=== PATIENT | male | born 1985 | race Caucasian/White ===

== ENCOUNTER 2024-08-08 14:05 | Emergency (ER) | payer BC ==
[~2024-08-08] VITALS: Ht 160 cm; Wt 65.0 kg
[2024-08-08 14:14] VITALS: BP 135/75; PULSE 64; TEMP 98.4; O2SAT 100
[2024-08-08 15:46] LABS: BASOPHILS % 0.2 % (0.0-2.0); EOSINOPHILS % 0.3 % (0.0-5.0); HEMOGLOBIN. 14.7 g/dL (14.0-18.0); LYMPHOCYTES % 9.5 % (20.0-50.0); MEAN CORPUSCULAR HEMOGLOBIN 29.4 pg (28.0-32.0); MEAN CORPUSCULAR VOLUME 86.2 fL (80.0-94.0); MEAN PLATELET VOLUME 9.1 fl (7.4-10.4); MONOCYTES % 2.6 % (2.0-8.0); NEUTROPHILS % 87.4 % (40.0-76.0); PLATELET 254 x1000/uL (130-400); RED BLOOD CELL COUNT 4.99 mill/uL (4.7-6.1); RED CELL DISTRIBUTION WIDTH 13.4 % (11.6-14.6); WHITE BLOOD COUNT 16.8 x1000/uL (4.5-11.0)
[2024-08-08 15:51] LABS: CHLORIDE 106 mEq/L (98-107); POTASSIUM 4.1 mEq/L (3.5-5.1); SODIUM 140 mEq/L (136-145)
[2024-08-08 15:52] LABS: CARBON DIOXIDE 28 mEq/L (21-32)
[2024-08-08 15:53] LABS: CALCIUM 9.7 mg/dL (8.7-10.4)
[2024-08-08 15:57] LABS: GLUCOSE 136 mg/dL (70-105)
[2024-08-08 15:58] LABS: UREA NITROGEN BLOOD 16 mg/dL (9-23)
[2024-08-08 16:03] LABS: ALANINE AMINOTRANSFERASE 59 IU/L (10-49); ALBUMIN 4.9 g/dL (3.2-4.8); ASPARTATE AMINOTRANSFERASE 36 IU/L (<34); BILIRUBIN DIRECT 0.1 mg/dL (<=3.0); BILIRUBIN TOTAL 0.5 mg/dL (0.1-1.0); PROTEIN TOTAL 7.7 g/dL (6.0-8.3)
[2024-08-08 17:57] LABS: CLARITY URINE CLEAR (CLEAR); COLOR URINE YELLOW (YELLOW); GLUCOSE URINE NEGATIVE (NEGATIVE); KETONES URINE 2+ (NEGATIVE); LEUKOCYTE ESTERASE URINE NEGATIVE (NEGATIVE); NITRITE URINE NEGATIVE (NEGATIVE); OCCULT BLOOD URINE NEGATIVE (NEGATIVE); PH URINE 6.5 (4.5-8.0); PROTEIN URINE TRACE (NEGATIVE)
[2024-08-08] MEDS: ONDANSETRON 4MG ODT PO ONE (18:00)
[2024-08-08] MEDS: MAGNESIUM/ALUMINUM HYDROXIDE/SIMETHICONE 30ML UDC PO ONE (18:00)
[2024-08-08] MEDS: IBUPROFEN 400MG TABLET PO ONE (18:00)
[2024-08-08 18:18] LABS: RBC URINE NONE SEEN /hpf (0-2); SQUAMOUS EPITHELIAL CELL URINE 1+ /lpf (RARE/1+); WBC URINE 0-2 /hpf (0-2)
[2024-08-08 18:19] LABS: BACTERIA URINE NONE SEEN
[2024-08-08] MEDS ORDERED: FAMO-135 PO (18:45)
[2024-08-08 19:00] VITALS: RESP 16
== END 2024-08-08 19:19 | disposition home or self-care (01) ==
LOC: ER 14:05
DX: R10.13 Epigastric pain (principal); E78.5 Hyperlipidemia, unspecified; Z88.0 Allergy status to penicillin
CPT/HCPCS: 99284; 74176; 80076; 80048; 81003; 83690; 85025; 36415; Q0162

== ENCOUNTER 2024-09-13 08:54 | Emergency (ER) | payer BC ==
[~2024-09-13] VITALS: Ht 160 cm; Wt 63.5 kg
[~2024-09-13 08:54] MED LIST: FAMO-135 PO
[2024-09-13 09:01] VITALS: O2SAT 96
[2024-09-13] MEDS ORDERED: IBUP-2028 MT (11:03)
[2024-09-13] MEDS ORDERED: GUAI-453 MT (11:13)
[2024-09-13] MEDS: IBUPROFEN 400MG TABLET PO ONE (11:20)
[2024-09-13 11:21] VITALS: BP 119/68; PULSE 84; RESP 16; TEMP 37.00296; O2SAT 96
== END 2024-09-13 11:22 | disposition home or self-care (01) ==
LOC: ER 09:07
DX: B34.9 Viral infection, unspecified (principal); Z88.0 Allergy status to penicillin; Z98.890 Other specified postprocedural states
CPT/HCPCS: 99282